=== PATIENT | female | born 1995 | race Caucasian/White ===

== ENCOUNTER 2023-08-14 11:27 | Outpatient (CLI) | payer BC, SELFPAY ==
[2023-08-24 17:46] LABS: CF Result POSITIVE (NEGATIVE); Ethnicity CAUCASIAN
== END 2023-08-14 11:28 | disposition home or self-care (01) ==
PROVIDERS: Visit Provider Obstetrics & Gynecology
DX: Z34.90 Encounter for supervision of normal pregnancy, unspecified, unspecified trimester (principal); Z3A.00 Weeks of gestation of pregnancy not specified
CPT/HCPCS: 36415; 81220; 81243

== ENCOUNTER 2024-01-18 12:26 | Outpatient (CLI) | payer BC, SELFPAY ==
[2024-01-18 12:44] VITALS: BP 130/79
[2024-01-18 13:00] VITALS: BP 138/86; PULSE 90
[2024-01-18 13:02] LABS: Basophils Percent Auto 0.3 % (0.2-1.2); Eosinophils Percent Auto 0.3 % (0-4.4); Hematocrit 42.2 % (37.0-47.0); Hemoglobin 13.7 g/dL (12.0-15.0); Immature Granulocyte Absolute 0.07 K/mm3 (0.00-0.031); Immature Granulocyte Percent A 0.6 % (0-0.5); Lymphocytes Absolute Auto 1.78 K/mm3 (0.9-3.2); Lymphocytes Percent Auto 15.4 % (18.3-44.2); Mean Corpuscular HGB Conc 32.5 g/dl (32-36); Mean Corpuscular Hemoglobin 28.7 pg (26-34); Mean Corpuscular Volume 88.3 fl (80-100); Monocytes Absolute Auto 0.7 K/mm3 (0.1-0.6); Monocytes Percent Auto 5.7 % (2.6-8.5); Neutrophils Percent Auto 77.7 % (45.5-73.1); Platelet Count Result 235 k/mm3 (150-375); Red Blood Count 4.78 M/mm3 (4.2-5.4); Red Cell Distribution Width 13.5 % (11.5-14.5); White Blood Count 11.6 K/mm3 (4.5-10.0)
[2024-01-18 13:04] LABS: Appearance Urine Clear (Clear); Bilirubin Urine Negative (Negative); Blood Urine Negative (Negative); Color Urine Yellow (Yellow); Glucose Urine UA Negative (Negative); Ketones Urine Negative (Negative); Leukocyte Esterase Ur Negative LEU/UL (Negative); Nitrate Urine Negative (Negative); Protein Urine Negative (Negative); Specific Grav Ur 1.007 (1.001-1.035); Urobilinogen Urine 0.2 mg/dL (<2.0)
[2024-01-18 13:13] LABS: Add Urine Microscopic? NO
[2024-01-18 13:15] VITALS: BP 125/77; PULSE 81
[2024-01-18 13:23] LABS: Alanine Aminotransferase 20 U/L (6-35); Albumin Level 3.9 g/dL (3.5-5.1); Alkaline Phosphatase 198 U/L (38-126); Anion Gap 5 mmol/L (4-12); Aspartate Amino Transferase 22 U/L (14-36); Bilirubin,Total 0.3 mg/dL (0.2-1.3); Blood Urea Nitrogen 6 mg/dL (7-17); Calcium 8.9 mg/dL (8.4-10.2); Carbon Dioxide 20 mmol/L (22-30); Chloride 110 mmol/L (98-107); Estimated Glomerular Filt Rate > 60; Glucose 70 mg/dL (65-110); Potassium 4.3 mmol/L (3.4-5.0); Sodium 135 mmol/L (137-145); Uric Acid 4.8 mg/dL (2.5-7.5)
[2024-01-18 13:26] LABS: Creatinine Urine 34.4 mg/dL; Total Protein Urine Random 11 mg/dL; Ur Ttl Prot Creatinine Ratio 0.32 mg/mg (0-0.20)
[2024-01-18 13:30] VITALS: BP 130/79; PULSE 90
== END 2024-01-18 15:00 | disposition home or self-care (01) ==
LOC: ANHOBOP 12:31 → ANHOBPP 12:32
PROVIDERS: Student in an Organized Health Care Education/Training Program; Visit Provider Obstetrics & Gynecology
DX: O13.9 Gestational [pregnancy-induced] hypertension without significant proteinuria, unspecified trimester (principal); Z3A.00 Weeks of gestation of pregnancy not specified
CPT/HCPCS: 36415; 59025; 80053; 81003; 82570; 84156; 84550; 85025; 99199

== ENCOUNTER 2024-01-30 12:06 | Inpatient (IN) | payer BC, SELFPAY ==
[2024-01-30] VITALS (129 sets, daily range): BP systolic 81–178; BP diastolic 47–133; PULSE 65–237; TEMP 36.8–37.2; O2SAT 88–100; BMI 28.3
--- NOTE | 2024-01-30 12:06 | LDADM ---
This patient, Shyanne Agrawal, was admitted to Labor/Delivery/Recovery 108 on 01/30/24 at 12:06. Plans for labor, pain management and were discussed with patient. Patient/family oriented to hospital policies and general routines including ID bracelet, bed and alarms, visiting hours, pain management, procedures, bathroom and other care routines, personal items, smoking policy, room service/diet and guest tray routines, infant security routines, and visiting hours. Patient/Family are encouraged to report perceived risks to care and to ask questions if they do not understand what they are told or what they should do. See OBIX for further documentation.
[2024-01-30 14:12] LABS: Basophils Percent Auto 0.2 % (0.2-1.2); Eosinophils Percent Auto 0.1 % (0-4.4); Hematocrit 38.7 % (37.0-47.0); Immature Granulocyte Absolute 0.05 K/mm3 (0.00-0.031); Immature Granulocyte Percent A 0.4 % (0-0.5); Lymphocytes Absolute Auto 1.22 K/mm3 (0.9-3.2); Lymphocytes Percent Auto 10.9 % (18.3-44.2); Mean Corpuscular HGB Conc 33.6 g/dl (32-36); Mean Corpuscular Hemoglobin 29.5 pg (26-34); Mean Corpuscular Volume 87.8 fl (80-100); Mean Platelet Volume 12.2 fl (7.4-10.4); Monocytes Absolute Auto 0.5 K/mm3 (0.1-0.6); Monocytes Percent Auto 4.7 % (2.6-8.5); Neutrophils Absolute Auto 9.4 K/mm3 (1.3-6.7); Neutrophils Percent Auto 83.7 % (45.5-73.1); Platelet Count Result 205 k/mm3 (150-375); Red Blood Count 4.41 M/mm3 (4.2-5.4); White Blood Count 11.2 K/mm3 (4.5-10.0)
[2024-01-30 14:23] LABS: Alanine Aminotransferase 17 U/L (6-35); Albumin Level 3.5 g/dL (3.5-5.1); Alkaline Phosphatase 164 U/L (38-126); Anion Gap 11 mmol/L (4-12); Aspartate Amino Transferase 22 U/L (14-36); Bilirubin,Total 0.3 mg/dL (0.2-1.3); Blood Urea Nitrogen 8 mg/dL (7-17); Calcium 9.1 mg/dL (8.4-10.2); Carbon Dioxide 17 mmol/L (22-30); Chloride 108 mmol/L (98-107); Estimated Glomerular Filt Rate > 60; Glucose 140 mg/dL (65-110); Sodium 136 mmol/L (137-145); Uric Acid 5.3 mg/dL (2.5-7.5)
[2024-01-30] MEDS: LACTATED RINGERS 1,000 ML 125 ML IV CONT (14:29)
[2024-01-30 14:30] LABS: Appearance Urine Clear (Clear); Bacteria Urine None Seen /hpf; Bilirubin Urine Negative (Negative); Blood Urine Negative (Negative); Color Urine Yellow (Yellow); Glucose Urine UA Trace mg/dL (Negative); Ketones Urine 1+ mg/dL (Negative); Leukocyte Esterase Ur Negative LEU/UL (Negative); Nitrate Urine Negative (Negative); Non Pathogenic Casts 0-2; Protein Urine 1+ mg/dL (Negative); RBC Urine 0-2 /hpf (0-2); Specific Grav Ur 1.012 (1.001-1.035); Squamous Epithelial Cell Urine Occasional /hpf (Few); Urobilinogen Urine 0.2 mg/dL (<2.0); WBC Urine 0-5 /hpf (0-3)
[2024-01-30] MEDS: OXYTOCIN 30 UNITS/NS 500 ML 30 UNITS/500 ML BAG 6 UNITS IV CONT (14:30)
[2024-01-30 14:33] LABS: Add Urine Microscopic? YES
[2024-01-30 15:03] LABS: HIV 1/2 Ab P24 Ag Result Negative (Negative)
[2024-01-30 15:20] LABS: Creatinine Urine 67.7 mg/dL; Total Protein Urine Random 54 mg/dL
[2024-01-30] MEDS: fentaNYL CITRATE INJ (*CRX) 100 MCG/2 ML VIAL IV PUSH ×2 (18:41→20:15)
--- NOTE | 2024-01-30 20:03 | WPDANESEPP ---
Anes - Eval Pre Procedure Procedure: labor epidural Date/Time: 01/30/24 20:03 Surgeon: ratna Preop Diagnosis: pain during labor Pre Op Diagnosis: iol Patient Data Age: 28 Gender: F Height: 1.73 m Weight: 84.5 kg Last Vital Signs Temp 37.2 C 01/30/24 17:26 Pulse 231 H 01/30/24 20:00 BP 156/133 H 01/30/24 20:00 Pulse Ox 96 01/30/24 20:00 O2 Del Method Room Air 01/30/24 14:34 Allergies Allergy/AdvReac Type Severity Reaction Status Date / Time No Known Allergies Allergy Verified 01/30/24 11:08 Home Medications Medication Instructions Recorded Confirmed Type vitamins no.119-iron 1 tablet PO DAILY 07/05/23 01/30/24 History fumarate 29 mg-folic acid 1 mg tablet Laboratory Tests 01/30/24 14:00 WBC 11.2 H K/mm3 (4.5-10.0) RBC 4.41 M/mm3 (4.2-5.4) Hgb 13.0 g/dL (12.0-15.0) Hct 38.7 % (37.0-47.0) MCV 87.8 fl (80-100) MCH 29.5 pg (26-34) MCHC 33.6 g/dl (32-36) RDW 14.0 % (11.5-14.5) Plt Count 205 k/mm3 (150-375) MPV 12.2 H fl (7.4-10.4) Immature Gran % (Auto) 0.4 % (0-0.5) Neut % (Auto) 83.7 H % (45.5-73.1) Lymph % (Auto) 10.9 L % (18.3-44.2) [place] % (Auto) 4.7 % (2.6-8.5) Eos % (Auto) 0.1 % (0-4.4) Baso % (Auto) 0.2 % (0.2-1.2) Lymph # (Auto) 1.22 K/mm3 (0.9-3.2) [place] # (Auto) 0.5 K/mm3 (0.1-0.6) Eos # (Auto) 0.0 K/mm3 (0-0.3) Baso # (Auto) 0.0 K/mm3 (0.0-0.1) Abs Immat Gran (auto) 0.05 H K/mm3 (0.00-0.031) Absolute Neuts (auto) 9.4 H K/mm3 (1.3-6.7) Absolute Nucleated RBC 0.000 K/mm3 (0.0-0.012) Nucleated RBC % 0.0 % (0.0-0.2) Sodium 136 L mmol/L (137-145) Potassium 4.0 mmol/L (3.4-5.0) Chloride 108 H mmol/L (98-107) Carbon Dioxide 17 L mmol/L (22-30) Anion Gap 11 mmol/L (4-12) BUN 8 mg/dL (7-17) Creatinine 0.60 L mg/dL (0.7-1.0) Estim Creat Clear Calc Not Reportable Estimated GFR > 60 (59 - ) Glucose 140 H mg/dL (65-110) Uric Acid 5.3 mg/dL (2.5-7.5) Calcium 9.1 mg/dL (8.4-10.2) Total Bilirubin 0.3 mg/dL (0.2-1.3) AST 22 U/L (14-36) ALT 17 U/L (6-35) Alkaline Phosphatase 164 H U/L (38-126) Total Protein 6.0 L g/dL (6.3-8.2) Albumin 3.5 g/dL (3.5-5.1) Urine Color Yellow (Yellow) Urine Appearance Clear (Clear) Urine pH 6.0 (5.0-9.0) Ur Specific [place] 1.012 (1.001-1.035) Urine Protein 1+ H mg/dL (Negative) Urine Glucose (UA) Trace H mg/dL (Negative) Urine Ketones 1+ H mg/dL (Negative) Ur Blood (Man) Negative (Negative) Urine Nitrate Negative (Negative) Urine Bilirubin Negative (Negative) Urine Urobilinogen 0.2 mg/dL (<2.0) Leukocyte Esterase Rfl Negative SINDHU/UL (Negative) Urine RBC 0-2 /hpf (0-2) Urine WBC 0-5 /hpf (0-3) Ur Squamous Epith Cells Occasional /hpf (Few) Urine Bacteria None seen /hpf Urine Casts 0-2 U Random Total Protein 54 mg/dL Urine Creatinine 67.7 mg/dL Protein/Creat Ratio 2 0.80 H mg/mg (0-0.20) RPR Pending HIV 1&2 Ab/P24 Ag 4thGn Negative (Negative) Blood Type O Positive Antibody Screen Negative Patient hx anesthesia problems: none Family hx anesthesia problems: none Results Review: All pre-operative results and documents have been reviewed as part of the pre-operative evaluation. [facility] Past Medical History Medical History History of one miscarriage around 6 weeks Surgical History Surgical History No history of previous surgery Family History Family History Mother Cervical cancer Social History Social History Naina
[2024-01-30] MEDS: LACTATED RINGERS 1,000 ML 999 ML IV CONT (20:23)
[2024-01-30] MEDS: SODIUM CHLORIDE 0.9% IV 300 ML 600 ML I-UTERINE (21:05)
[2024-01-31] VITALS (13 sets, daily range): BP systolic 123–138; BP diastolic 70–92; PULSE 80–136; RESP 16–18; TEMP 36.7–37.7; O2SAT 98–100
[2024-01-31] MEDS: ONDANSETRON INJ 4 MG/2 ML VIAL IV PUSH (00:02)
--- NOTE | 2024-01-31 00:36 | PM.OBPRVD ---
OB - Vaginal Delivery Note Procedure Delivery date: 01/31/24 Events: Gestational Hypertension Intrapartal Events: Decelerations Induction method: Per Pitocin Protocol Delivery augmentation: Rupture of Membranes Delivery monitor: External FHT and Internal Uterine (for amnioinfusion bolus due to moderate repetitive variable decelerations) Route of delivery: Episiotomy description: Left Mediolateral Specimen: Yes (placenta and cord) Quantitative Blood Loss (ml): 150 Anesthesia type: Epidural Disposition: Floor Complications: No immediate complications Narrative: she is admitted for medical induction of labor due to gestational hypertension. She did get PIH labs which did show a protein creatinine ratio elevated 0.8 diagnosis of preeclampsia. Pitocin was started. tracing with occasional variables. She did have assisted rupture of membranes clear fluid was noted. She continued to progress in labor she had an epidural placed upon request. She dilated to complete. Second stage of labor significant for moderate early decelerations. Due to this a left mediolateral episiotomy was performed. Infant was delivered. Nose and mouth were suctioned at the perineum loose nuchal cord was manually reduced. was placed on maternal abdomen. Infant was vigorously crying. Delayed cord clamping for approximately 45 seconds. Cord was doubly clamped and cut. Pitocin started. Placenta delivered spontaneously and intact. Episiotomy was repaired with 3-0 Vicryl. Patient tolerated procedure well. Baby Date of : 01/31/24 Time of : 00:11 Weeks of gestation at delivery: 39 Infant gender: Female Weight (pounds): 5 Weight (ounces): 15 presentation: vertex position: Left Occiput Anterior Placenta delivery description: Spontaneous Cord Vessel Description: 3 Vessels, Nuchal Cord (x1), Loose and Reduced (manually) score one minute: 8 score five minutes: 9
--- NOTE | 2024-01-31 00:38 | PM.IMHP ---
H&P: HPI History of Present Illness Date/Time: 01/31/24 00:38 Chief Complaint: Induction of labor Narrative: 28 y/o a 39 weeks with edc 02/05/24 by LMP. She presented for CT visit and blood pressure elevated. This was the second elevated blood pressure. She denies any symptoms of sever pre-eclampsia. Labs reviewed. GBS neg. Review of Systems Review of Systems: All systems reviewed & are unremarkable except as noted in HPI and below Constitutional: Constitutional: Reports no additional constitutional complaints and Denies headache(s) Eyes: Eyes: Denies spots in vision ENT: Reports system reviewed and no additional complaints, except as documented and Denies headache(s) Cardiovascular: Cardiovascular: Denies chest pain and Denies dyspnea Respiratory: Respiratory: Denies dyspnea Gastrointestinal: Gastrointestinal: Reports no additional gastrointestinal complaints Genitourinary: Genitourinary: Reports amenorrhea Musculoskeletal: Musculoskeletal: Reports no additional musculoskeletal complaints Integumentary/Breasts: Skin/Breast: Denies breast mass and Denies rash Neurologic: Denies headache(s) Psychiatric: Psychiatric: Reports no additional psychiatric complaints [facility] Past Medical History Medical History History of one miscarriage around 6 weeks Surgical History Surgical History No history of previous surgery Family History Family History Mother Cervical cancer Social History Social History Smoking status: Never smoker Second hand tobacco smoke exposure: No Alcohol intake: former Substance use: never Do You Feel Safe in your Home?: Yes Lack of Transportation: No Lack of Food: Never True Current Housing: I Have Housing Concerned About Future Housing: No Difficulty Paying Gas/Electric Bills: No Difficulty Paying for Meds: No Currently Unemployed: No Education: High School Diploma/GED Difficulty w/ Childcare or Family Care: No Living arrangements: with family Occupation/Education: occupation Gender identity (if verbalized by the patient): Female Sexual Orientation (if Verbalized by the Patient): Straight or Heterosexual Spiritual care concerns: No Meds Home Medications and Allergies Home Medications Medication Instructions Recorded Confirmed Type vitamins no.119-iron 1 tablet PO DAILY 07/05/23 01/30/24 History fumarate 29 mg-folic acid 1 mg tablet Allergies Allergy/AdvReac Type Severity Reaction Status Date / Time No Known Allergies Allergy Verified 01/30/24 11:08 Vital Signs Vital Signs - 24 hr 01/30/24 13:30 01/30/24 13:45 01/30/24 14:00 Temperature Pulse Rate 103 H 96 110 H Blood Pressure 138/95 H 137/91 H 139/102 H Pulse Oximetry Oxygen Delivery 01/30/24 14:16 01/30/24 14:23 01/30/24 14:26 Temperature 98.2 F Pulse Rate 107 H 91 Blood Pressure 137/112 H 133/89 Pulse Oximetry Oxygen Delivery 01/30/24 14:30 01/30/24 14:45 01/30/24 14:46 Temperature Pulse Rate 109 H 95 96 Blood Pressure 142/105 H 135/91 H 136/90 Pulse Oximetry Oxygen Delivery 01/30/24 15:00 01/30/24 15:15 01/30/24 15:30 Temperature Pulse Rate 90 89 95 Blood Pressure 136/97 H 133/92 H 145/97 H Pulse Oximetry Oxygen Delivery 01/30/24 15:45 01/30/24 16:00 01/30/24 16:15 Temperature Pulse Rate 84 74 86 Blood Pressure 157/85 H 141/90 H 134/89 Pulse Oximetry Oxygen Delivery 01/30/24 16:30 01/30/24 16:45 01/30/24 17:00 Temperature Pulse Rate 91 82 90 Blood Pressure 148/98 H 130/89 137/101 H Pulse Oximetry Oxygen Delivery 01/30/24 17:15 01/30/24 17:23 01/30/24 17:28 Temperature Pulse Rate 68 Blood Pressure 152/93 H Pulse Ox
--- NOTE | 2024-01-31 00:38 | WPDHPUPDATE1 ---
History and Physical Update Update Date/Time: 01/31/24 00:38 History and Physical has been reviewed, including an updated exam of the patient. There are NO changes in the patient's condition. Risks, benefits, and alternatives have been discussed and questions answered. Patient agrees to proceed with procedure.
--- NOTE | 2024-01-31 00:38 | WPDOBADMIT ---
Obstetrics - Admit Note Admission Note: record reviewed. No pertinent additions to the history and/or any subsequent changes in the physical findings that are not consistent with the expected course of the were found. Additions to the history and/or subsequent changes in the physical findings follow. None.
--- NOTE | 2024-01-31 00:38 | PM.OBPNLAB ---
Pain Control Date/time seen: 01/30/24 AROM clear Occasional variable. Cat 2. Continue Pitocin.
[2024-01-31] MEDS: OXYTOCIN 30 UNITS/NS 500 ML 30 UNITS/500 ML BAG 125 UNITS IV CONT (00:45)
[2024-01-31] MEDS: HYDROcodone/acetaminophen (*CRX) 5-325 MG TABLET 1 TAB PO (01:18)
--- NOTE | 2024-01-31 02:46 | OBPPTRN ---
Patient transferred to post room #284 via wheelchair. Support person present. Oriented to unit, room, information board, rooming in, admission packet and security measures. Patient verbalizes understanding.
[2024-01-31] MEDS: IBUPROFEN 600 MG TABLET PO ×2 (07:48→13:39)
[2024-01-31] MEDS: MULTIVIT/MIN/PREN/FOL AC/IRON TABLET 1 TAB PO (07:49)
[2024-01-31] MEDS: DOCUSATE SODIUM 100 MG CAPSULE PO (07:49)
[2024-01-31 13:43] LABS: Rapid Plasma Reagin Non-Reactive (NonReactive)
--- NOTE | 2024-01-31 14:47 | PC.NURSE ---
1015. Introductions were made, then consulted with patient to assess needs related to . Mother led the conversation with her?plans to feed?her infant and the?experience so far. Encouraged understanding of the benefits of skin to skin, stimulating with massage touch, changing positions to encourage wakefulness, how to watch for early feeding cues, responsive feeding, feeding on demand (aiming for 8-12 times in 24 hours, about every 2-3 hours), milk production, building/maintaining a milk supply, duration of feeding, signs of adequate intake/output and how to record on the feeding sheet. Mother works well with her with encouragement and education. Reviewed positioning and ear, shoulder, hip alignment, supporting the breast to facilitate a deep latch, asymmetrical latch (off-center), leading with the chin with a big, open, wide gape and body close to mother. latched optimally to the Right breast in cross cradle position. Education given to the mother of how to visualize the suckling (with good rocking jaw motion), swallows (dropping of the lower jaw) and how to listen for drinking at the breast (the ka sound). Infant was able to maintain latch without pain to mother protecting the nipple with optimal positioning and latching. Reviewed comfort measures of healing with a warm, wet washcloth to rinse breast, then leave open to air-dry, good handwashing when or touching the breast/nipples to prevent infection. Mother voiced understanding of skin to skin, stimulating with massage touch, responsive feedings, hand expressed colostrum, talking to infant to encourage if it has been 2 -2.5 hours since the start of the last , to call if does not latch, or if there is discomfort with . Resources used for education were facilitated with the visual educational handouts. Inpatient resources provided with name written on the communication board, and the mom/baby guide. Parents voiced understanding of information, demonstrated learning and will call if there is a request for assistance. Reported to the Primary RN.
[2024-01-31] MEDS: TETANUS,DIPHTHERIA,AC PERTUSSIS ADULT (0.5 ML) BOOSTRIX IM (15:58)
[2024-01-31] MEDS: ACETAMINOPHEN 325 MG TABLET 650 MG PO (16:07)
[2024-02-01 00:30] VITALS: BP 115/69; PULSE 96
[2024-02-01] MEDS: ACETAMINOPHEN 325 MG TABLET 650 MG PO ×2 (04:18→18:23)
[2024-02-01] MEDS: IBUPROFEN 600 MG TABLET PO ×2 (04:19→18:23)
[2024-02-01 05:12] VITALS: BP 123/62; PULSE 81
[2024-02-01 05:12] LABS: Hematocrit 33.3 % (37.0-47.0); Hemoglobin 10.7 g/dL (12.0-15.0)
--- NOTE | 2024-02-01 07:30 | PM.OBPNVD ---
OB - PN: Subj Subjective Date/time seen: 02/01/24 07:29 Narrative: PPD#1 Shyanne reports doing well today. 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 Her pain is controlled. She is tolerating regular diet, voiding, passing gas, and ambulating without issues. She is breast feeding. She would like to go home today. OB - PN: Obj Data Labs 02/01/24 04:21 01/30/24 14:00 Labs: Laboratory Results - last 24 hr 01/30/24 14:00 RPR Non-reactive OB - PN A/P Assessment and Plan (1) Normal vaginal delivery: Code(s): O80 - Encounter for full-term uncomplicated delivery Status: Acute Plan day: 1 Plan: routine care and discharge home Comments: - PO pain meds - Regular diet - Ambulation and hydration encouraged - Continue putting baby to breast q2-3hr Time Spent With Patient Time: Total time spent is greater than 50% in coordination of care (as documented) at patient's floor/unit and/or counseling patient: Review of Systems Constitutional: Constitutional: Denies chills, Denies fever(s) and Denies headache(s) Eyes: Eyes: Denies change in vision ENT: Denies dizziness and Denies headache(s) Cardiovascular: Cardiovascular: Denies chest pain, Denies palpitations and Denies dyspnea Respiratory: Respiratory: Denies cough and Denies dyspnea Gastrointestinal: Gastrointestinal: Denies nausea and Denies vomiting Neurologic: Denies dizziness and Denies headache(s) Endocrine: Endocrine: Denies palpitations Exam Const: General: cooperative, comfortable and no acute distress Orientation/consciousness: patient oriented x3 Resp: Effort & Inspection: normal respiratory effort Auscultation: clear to auscultation bilaterally Cardio: Rate: regular rate GI: Inspection: non-distended GI Palp: No abdominal tenderness and Yes Soft to palpation Auscultation: normal bowel sounds : Other: fundus firm Skin: General skin exam: normal color Neuro: General: patient oriented x3 Extrem: General: normal to inspection Psych: Appearance: grossly normal Affect: normal affect Attitude: cooperative
[2024-02-01] MEDS: DOCUSATE SODIUM 100 MG CAPSULE PO ×2 (07:42→16:07)
[2024-02-01] MEDS: MULTIVIT/MIN/PREN/FOL AC/IRON TABLET 1 TAB PO (07:42)
[2024-02-01 08:50] VITALS: BP 122/82; PULSE 96; RESP 16; TEMP 36.6; O2SAT 99
[2024-02-01 11:47] VITALS: BP 119/73; PULSE 91; RESP 16; TEMP 36.7; O2SAT 99
--- NOTE | 2024-02-01 12:58 | WPDANLDPN2 ---
Anes-Prog Note L&D Date/Time: 02/01/24 12:58 Comfortable throughout: labor and delivery Neuraxial method: epidural Epidural/Spinal procedure site: clean & non-tender Neuro status: Neuro function grossly intact. Cardiovascular status: normal Respiratory status: normal Airway patency: baseline Mental status: baseline Post-Op hydration status: normal Vital Signs: Last Vital Signs Temp 36.7 C 02/01/24 11:47 Pulse 91 02/01/24 11:47 Resp 16 02/01/24 11:47 BP 119/73 02/01/24 11:47 Pulse Ox 99 02/01/24 11:47 O2 Del Method Room Air 02/01/24 07:45 Pain score (VAS): 0/10 I/O: Intake & Output 01/31/24 02/01/24 02/01/24 23:59 07:59 15:59 Intake Total 1350 500 300 Output Total 800 800 Balance 1350 -300 -500 Post-procedural complaints: none Patient feedback: Patient satisfied with anesthetic care.
[2024-02-01 20:30] VITALS: BP 122/70; PULSE 64; RESP 16; TEMP 36.9; O2SAT 100
[2024-02-02 00:23] VITALS: BP 134/86; PULSE 91; RESP 16; TEMP 37; O2SAT 99
[2024-02-02 07:40] VITALS: BP 123/80; PULSE 87; RESP 18; TEMP 36.7; O2SAT 99
[2024-02-02] MEDS: MULTIVIT/MIN/PREN/FOL AC/IRON TABLET 1 TAB PO (07:45)
[2024-02-02] MEDS: DOCUSATE SODIUM 100 MG CAPSULE PO (07:45)
--- NOTE | 2024-02-02 09:20 | PC.NURSE ---
Mother demonstrates that she is able to independently latch with appropriate positioning and alignment. is consistently latched and suckling on the left breast. did have one spontaneous swallow that was observed. Mom denies any consistent nipple discomfort with feedings and is responsively . Infant is currently meeting outcomes for weight, output, jaundice, blood sugar and feeding frequencies of 8-12 times in 24 hours. However, infant has lost 8% of her weight and Dr. Vergara has ordered for mother to only breastfeed for 15 minutes at a time and then supplement with at least 20ml of formula. Discussed possibly pumping with mother. Her Medela pump is at home but she is open to using a hospital pump. Mother is encouraged to call for assistance if her infant doesn?t latch, pain with latching, if infant is unable to take at least 20ml of formula in 20 minutes or for any other questions or concerns. Mother voiced understanding of information shared along with the mom/baby guide for an additional resource. Reported to the Primary RN.
--- NOTE | 2024-02-02 09:25 | PM.OBPNVD ---
OB - PN: Subj Subjective Date/time seen: 02/02/24 09:25 Patient comments: no complaints, pain well controlled, tolerating diet and other (Decreasing lochia.) baby status: other (Has not been discharged due to weight loss.) feeding status: breast and bottle feeding OB - PN: Obj Data Labs 02/01/24 04:21 01/30/24 14:00 OB - PN A/P Plan day: 2 Plan: discharge home and other Comments: Patient doing well. Will discharge to no care status. PIH precautions discussed. Follow up 4-6 weeks. Discharge instructions provided. Time Spent With Patient Time: Total time spent is greater than 50% in coordination of care (as documented) at patient's floor/unit and/or counseling patient: Time with patient: less than 15 minutes Exam Psych: Affect: normal affect Other: Abd: fundus firm below umbilicus, nontender Perineum: healing Ext: nontender
--- NOTE | 2024-02-02 11:05 | PC.NURSE ---
1015: Breast pump provided due to [doctor order to supplement and limit to 15 minutes per feeding]. Instructions given on cleaning, care, usage, that there should be no pain, pumping schedule for milk production, collection, and storage of human milk. Patient was assessed for correct placement, flange size, to pump for comfort and nipple stretching/stimulation for adequate milk production every 3 hours (8 times in 24 hours) 1-2 times at night.?Encouraged mother than any pumped milk can be provided to baby before formula, to make a total of at least 20ml of supplement. Mother voiced understanding of the education shared along with mom/baby guide and the pump measurement, flange fit handout for additional resource information. Reported to the Primary RN. 1040: Mother completed pumping with no pain. 13 ml of pumped milk was obtained. Mother instructed to leave the pumped milk at room temperature (up to 4 hours) until infant's next feeding time. Instructed mother on using pumped milk first, then formula. Reviewed with mother cleaning her pump parts and letting them air dry before the next feeding. Mother very receptive to education and verbalized understanding. Patient will call for additional assistance as needed.
[2024-02-02 12:20] VITALS: BP 126/81; PULSE 102; RESP 16; TEMP 37; O2SAT 97
--- NOTE | 2024-02-02 13:00 | PC.NURSE ---
Checked in with patient to see how most recent feeding was going. She had already fed the for 15 minutes at breast and given the 13ml of breastmilk she pumped. She stated that they had topped infant off with a small amount of formula as well, trying to meet the doctors order of 20ml of supplement after each . Mother and father both state that fed better with the bottle today than she had throughout the night. They also were encouraged that infant did not spit up after this feeding. Mother unsure if she should pump after this feeding. Discussed pumping for extra stimulation since we are limiting baby's time at breast per the doctor's order. Mother agrees to this plan, and is encouraged that she can have breastmilk for supplementation in addition to using formula. Mother knows to call for any further issues, questions, or feeding assistance.
[2024-02-02 17:20] VITALS: BP 140/94; PULSE 103; RESP 18; TEMP 37.2; O2SAT 99
[2024-02-02 17:40] VITALS: BP 138/101; PULSE 96
[2024-02-03 10:42] VITALS: BP 124/86; PULSE 76; RESP 18; TEMP 36.5; O2SAT 99
--- NOTE | 2024-02-03 11:56 | PC.NURSE ---
4168. Consulted with mother concerning needs and follow up with any questions she had before babys discharge today. Mom reports baby had weight gain overnight and is back up to 7% weight loss from 9% yesterday. She verbalized concerns about how she would be able to tell if her body is not producting enough milk for baby. Education given on effective nipple stimulation to ensure adequate milk production. Discussed good diet for moms, and adqueate hydration. Mom verbalized her ability to independently latch optimally without pain. Mother is feeding appropriately for growth of infant and understands stimulating to eat if needed. Infant has had appropriate feedings in the last 24 hours meets the outcomes for weight, output, blood sugar and jaundice at this time. Reinforced understanding of milk production, transition of milk, signs of adequate intake, transition of stool, prevention/relief of engorgement, plugged ducts, mastitis, responsive watching for feeding cues, the different methods of stimulating infant to breastfeed 1-3 hours after the start of the last feeding, community resources, and when to call a provider using the resource of the feeding sheet along with the mom and baby guide. Mother voiced understanding of the information shared, is confident to continue effectively her infant at home, when to call for assistance, denies any additional assistance or education at this time. Reported to the Primary RN.
--- NOTE | 2024-02-26 16:41 | PM.OBDSVD ---
DS: Admitting Diagnosis Discharge Date 02/02/24 Admitting Diagnosis Gestational hypertension DS: Discharge Diagnosis Discharge Diagnosis (1) Gestational hypertension: Code(s): O13.9 - Gestational [-induced] hypertension without significant proteinuria, unspecified trimester Status: Acute (2) Normal vaginal delivery: Code(s): O80 - Encounter for full-term uncomplicated delivery Status: Acute OB - DS: Summary Hospital Course Hospital Course: She was admitted for medical induction of labor for gestational hypertension without severe disease. She had an uncomplicated vaginal delivery. She and baby did well . No signs of severe disease. Patient and baby were discharged to home on day 2. OB Procedures : Ultrasound OB Procedures Intrapartum: Spontaneous Vag Delivery OB Procedures: : None Peripartum Data Infant Delivery Method: Natural Vaginal Episiotomy description: Left Mediolateral complications: none Status at Discharge Functional status at discharge: independent ambulation Time Spent with Patient Time attestation: Total time spent providing and/or coordinating discharge services: Exam Const: General: cooperative Orientation/consciousness: oriented to person, oriented to place and oriented to time HENMT: Face/Nose/Sinus: Normal external nose present Eyes: General: appearance normal, both eyes and all related structures Resp: Effort & Inspection: normal respiratory effort GI: Inspection: normal to inspection Skin: General skin exam: normal color Neuro: General: oriented to person, oriented to place and oriented to time Extrem: General: normal to inspection and no calf tenderness Psych: Appearance: grossly normal Mental Status: mental status grossly normal DS: Data Data Completed and Pending Completed studies during hospitalization: Pending at discharge 01/31/24 01:31 Surgical [PTH] Routine Discharge Plan Discharge Attending physician on discharge: Cristi Brooke Consulting providers: Dionna Valenzuela; Daniela Irizarry Discharging Clinician: Cristi Brooke Anticipated Discharge Date/Time: 02/01/24 11:00 Patient Disposition: Home, Self-Care Activity: may shower and pelvic rest Diet: regular Discharge Instructions: Education: Mom and Baby Guide Given to: Mother Follow-Up: Call your delivering provider's office for an appointment to be seen in: 4-6 weeks Mom and baby should come to the [facility] for the follow-up appointment. Appointment Date/Time: February 03, 2024 at 3:30 pm What to expect at your follow-up visit: Blood Pressure Check Physical Assessment Call [phone] if you are unable to keep your appointment time. BREAST CARE: * Wear a snug supportive bra. * For engorgement discomfort: Breast Feeding: * Apply warm moist washcloths * Express milk as needed to relieve engorgement * Wear loose clothing Bottle Feeding: * May apply ice packs * For sore nipples: * Identify correct latch-on * Apply warm moist washcloths before and after nursing * Air dry nipples after nursing * May apply Lansinoh cream to nipples PERINEAL CARE: * Until bleeding stops, use your luana bottle after urinating * Change your pad frequently throughout the day * You may take sitz baths several times a day (fill your bathtub with warm water and soak for 20 minutes.) Do NOT bathe in the water * No tub baths until seen by your physician - You may shower ACTIVITY: * Rest as much as possible. * Do not exercise or lift anything heavier than your baby (such as laundry or other children.) * Avoid stairs or driving as much as possible. * Do not put anything into the vagina. No douching, tampons, or sexual activity until seen by physician NOTIFY PHYSICIAN IF YOU HAVE ANY QUESTIONS OR IF ANY OF THE F
== END 2024-02-02 17:55 | disposition home or self-care (01) | DRG 807 ==
LOC: ANHLDR 12:15 → ANHOB2 01-31 21:09 → ANHLDR 02-05 14:19 → ANHOB2 02-05 14:19
PROVIDERS: Admitting Provider Obstetrics & Gynecology; Visit Provider Obstetrics & Gynecology
DX: O13.4 Gestational [pregnancy-induced] hypertension without significant proteinuria, complicating childbirth (principal); Z37.0 Single live birth; O69.81X0 Labor and delivery complicated by cord around neck, without compression, not applicable or unspecified; O76 Abnormality in fetal heart rate and rhythm complicating labor and delivery; Z3A.39 39 weeks gestation of pregnancy
CPT/HCPCS: 36415; 80053; 81001; 82570; 84156; 84550; 85014; 85018; 85025; 86592; 86703; 86850; 86900; 86901; 88307; 90715; A9270; G0432; J2405; J2590; J2795; J3010; J7030; J7120